=== PATIENT | female | born 1970 | race Caucasian/White ===

== ENCOUNTER 2017-02-03 15:05 | Emergency (ER) | payer SELFPAY ==
[2017-02-03 15:11] VITALS: BP 162/87; BMI 27.4
[2017-02-03] MEDS ORDERED: TORADOL 60 MG VIAL IM ONE (15:24)
--- NOTE | 2017-02-03 15:24 | DR.GENAD ---
HPI - PCP Primary Care Physician: NFD - HPI Comment HPI Comment: PAIN WORSE SWELLING INCREASES. PROBLEM BEARING WEIGHT. - Complaint/Symptoms Chief Complaint Doctors Comments: INJURY LT FOOT WHEN PHONE FELL ON THE FOOT THIS AM. Chief Complaint:: PT C/O LT FOOT PAIN. PT STATES SHE HAD A PHONE FALL ONTO IT EARLY THIS AM AND WAS IN NO PAIN, BUT ALL OF A SUDDEN SHE STARTED HAVING SHARP PAIN AND SWELLING. PT IS UNABLE TO BEAR WEIGHT ON FOOT. - Nurses notes reviewed Nurses Notes Review: Yes - Source History Provided: Patient - Mode of Arrival Mode of Arrival: Ambulatory - Timing Onset of Chief Complaint: 02/03/17 Came on: Suddenly - Duration Duration: Constant Duration: Hours - Severity Severity: Moderate PMH - PMH Past Medical History: No Past Surgical History: Yes Surgical History: Hysterectomy - Family History History of Family Medical Conditions: No - Social History Does patient currently use any type of tobacco product: Yes Have you used tobacco products in the last 12 months: Yes Type of Tobacco Use: Cigarettes Does any household member use tobacco: Yes Alcohol Use: Occasionally Do you use any recreational Drugs:: No Lives With: Family Lives Where: Home - infectious screening In the last 2 months have you had wt loss of >10#?: NO Have you had fever, night sweats or hemotysis?: No Have you traveled outside the country in the last 6 months?: No Isolation: Standard ROS - Review of Systems Constitutional: No Symptoms Reported Eyes: No Symptoms Reported ENTM: No Symptoms Reported Respiratoy: No Symptoms Reported Cardiovascular: No Symptoms Reported Gastrointestinal/Abdominal: No Symptoms Reported Genitourinary: No Symptoms Reported Neurological: No Symptoms Reported Musculoskeletal: Muscle Pain, Left, Leg, Ankle Integumentary: No Symptoms Reported Hematologic/Lymphatic: No Symptoms Reported Endocrine: No Symptoms Reported All Other Systems: Reviewed and Negative PE - Vital Signs Vitals: Temperature 97.7 F Pulse Rate 96 Respiratory Rate 22 Blood Pressure 162/87 O2 Sat by Pulse Oximetry 100 - General Limitations: No Limitations General Appearance: Alert - Head Head Exam: Normal Inspection - Eyes Eye exam: Normal Appearance - ENT ENT Exam: Normal External Ear Exam External Ear Exam: Normal External Inspection TM/Canal Exam: Bilateral Normal Nose Exam: Normal Nose Exam Mouth Exam: Normal Inspection Throat Exam: Normal Inspection - Neck Neck Exam: Trachea Midline - Chest Chest Inspection: Symmetric Chest Wall Rise - Respiratory Respiratory Exam: Normal Lung Sounds Bilat Respiratory Exam: Bilateral Clear to Auscultation - Cardiovascular Cardiovascular Exam: Regular Rate, Normal Rhythm, Normal Heart Sounds - Abdominal Exam Abdominal Exam: Normal Inspection - Extremities Extremities Exam: Tenderness (SWELLING AND TENDERNESS LEFT FOOT. PULSES INTAC. TENDERNESS ABOSE LT ANKLE IN THE LOWER LEG.) - Back Back Exam: Normal Inspection - Neurologic Neurological Exam: Alert, Oriented X3 - Psychiatric Psychiatric Exam: Normal Affect, Normal Mood - Skin Skin Exam: Normal Color MDM - Differential Diagnosis Differential Diagnosis: FRACTURE, SPRAIN, CONTUSION AND STRAIN LEFT FOOT. Course - Treatment Treatment: SEE ORDERS. - Education/Counseling Education/Counseling: Patient, Family, Education Educated On: Treatment, Diagnosis, Needs for Follow Up - Diagnosis Discharge Problem: Contusion of left foot Qualifiers: Encounter type: initial encounter Qualified Code(s): S90.32XA - Contusion of left foot, initial encounter Sprain of left foot Qualifiers: Encounter type: initial encounter Qualified Code(s): S93.602A - Unspecified sprain of left foot, initial encounter - Discharge Plan Disposition: 01 HOME, SELF-CARE Condition: Stable Prescriptions: Ibuprofen [MOTRIN TAB 600 MG *] 600 mg PO TID PRN #20 tab PRN Reason: Pain/Inflammation Tramadol HCl 50 mg PO Q8H PRN #15 tablet PRN Reason: - Follow ups/Referrals Follow ups/Referrals: NFD,None [Primary Care Provider] - 3 days LUÍS DOW [STAFF PHYSICIAN] - 3 days - Instructions Instructions: Intermetacarpal Sprain, Musculoskeletal Pain Additional Instructions: RETURN TO ED IF WORSE.
[2017-02-03] MEDS ORDERED: TORADOL 60 MG VIAL ONE (15:31)
--- NOTE | 2017-02-03 18:54 | RAD ---
TIBIA/FIBULA RADIOGRAPHS CLINICAL HISTORY: 46-year-old female status post trauma with left lower extremity pain. COMPARISON: None. FINDINGS: Frontal and lateral views of the left tibia and fibula were obtained. These demonstrate no acute fracture or malalignment. The ankle and knee articulations are congruent on provided views. The mineralization is maintained. There is no aggressive bone lesion or abnormal periosteal reaction. There is no radiopaque foreign body, soft tissue calcification or gas. IMPRESSION: No evidence of acute fracture or osseous abnormality on left tibia and fibula radiographs. Reported By:
--- NOTE | 2017-02-03 18:59 | RAD ---
HISTORY: Left foot swelling Study: AP and oblique and lateral views of the left foot Comparison: None Findings: No acute cortical disruption or dislocation can be identified. No significant soft tissue swelling o r injury can be seen. The visualized portions of the talus and calcaneus are unremarkable. IMPRESSION: 1. Negative exam. Reported By:
== END 2017-02-03 17:22 | disposition home or self-care (01) ==
LOC: ER 15:20
DX: S90.32XA Contusion of left foot, initial encounter (principal); S93.602A Unspecified sprain of left foot, initial encounter; W19.XXXA Unspecified fall, initial encounter; Y92.9 Unspecified place or not applicable
CPT/HCPCS: 73590; 73630; 96372; 99282; 99283; J1885